=== PATIENT | male | born 2005 | race Hispanic/Latino ===

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

== ENCOUNTER → 2025-04-29 | Outpatient (CLI) | payer OTHER ==
[~2025-04-29] MED LIST changes: -ISOVUE-370 76% 100ML VIAL As Ordered ONE
== END ==
LOC: M RAD 12:22
PROVIDERS: ATTEND Physician Assistant
DX: N50.819 Testicular pain, unspecified (principal)